=== PATIENT | female | born 1950 | race Caucasian/White ===

== ENCOUNTER 2024-11-24 14:36 | Day surgery (SDC) | payer MEDICARE ==
[2024-11-20 14:44] LABS: BASOPHILS % (AUTO) 0.9 % (0-1); EOSINOPHILS # (AUTO) 0.1 X10'3 (0-0.9); EOSINOPHILS % (AUTO) 0.9 % (0-6); HEMATOCRIT 45.1 % (35.0-45.0); HEMOGLOBIN 15.1 g/dl (12.0-16.0); LYMPHOCYTES # (AUTO) 1.4 X10'3 (1.1-4.8); LYMPHOCYTES % (AUTO) 24.6 % (21-51); MEAN CORPUSCULAR HEMOGLOBIN 32.2 PG (27.0-31.0); MEAN CORPUSCULAR HGB CONC 33.6 g/dL (33.0-36.5); MEAN CORPUSCULAR VOLUME 95.7 FL (78-98); MEAN PLATELET VOLUME 9.5 FL (7.4-10.4); MONOCYTES # (AUTO) 0.5 X10'3 (0-0.9); MONOCYTES % (AUTO) 8.3 % (2-12); NEUTROPHILS # (AUTO) 3.7 X10'3 (1.8-7.7); NEUTROPHILS % (AUTO) 65.3 % (42-75); PLATELET COUNT 198 X10'3 (140-440); RED BLOOD COUNT 4.71 X10'6 (4.20-5.60); RED CELL DISTRIBUTION WIDTH 12.9 % (11.5-14.5); WHITE BLOOD COUNT 5.6 X10'3 (4.5-11.0)
[2024-11-20 14:54] LABS: APTT 28 SECONDS (22-32); PROTHROMBIN TIME 10.3 SECONDS (9.0-12.0)
[2024-11-20 14:56] LABS: ALBUMIN 3.7 G/DL (3.4-5.0); ANION GAP 9 (8-16); BLOOD UREA NITROGEN 17 MG/DL (7-18); BUN/CREATININE RATIO 18.3 (10.0-20.0); CALCIUM 8.6 MG/DL (8.5-10.1); CHLORIDE 107 MMOL/L (99-107); CHOL/HDL RATIO 3.5 (0.00-4.99); CHOLESTEROL 198 MG/DL (0-200); CREATININE 0.93 MG/DL (0.40-0.90); GLUCOSE 119 MG/DL (70-104); HDL CHOLESTEROL 57 MG/DL (35-60); LDL CHOLESTEROL 125 MG/DL (50-100); POTASSIUM 4.5 MMOL/L (3.5-5.1); SODIUM 142 MMOL/L (135-145); TOTAL CARBON DIOXIDE 26.1 MMOL/L (24-32); TRIGLYCERIDES 118 MG/DL (20-135); eGFR 59 ML/MIN
[2024-11-24] VITALS (7 sets, daily range): BP systolic 120–163; BP diastolic 63–82; PULSE 64–72; RESP 13–17; O2SAT 96–100
[~2024-11-24] VITALS: Ht 162.6 cm; Wt 96.7 kg
--- NOTE | 2024-11-24 15:05 | ELECTROCARDIOGRAPH REPORT ---
[facility] Test Date: 2024-11-24 Test Time: 14:58:36 Pat Name: LOPEZ COY Department: [facility] Patient ID: [id number] Room: Gender: F [employer]: : 1950 Requested By: REJI WHITE Order Number: [id number] Reading MD: Dr. Ricki Jackson Measurements Intervals [place] Rate: 68 P: 75 KS: 303 QRS: -64 QRSD: 158 T: 106 QT: 482 QTc: 513 Interpretive Statements Sinus rhythm Prolonged KS interval LBBB Electronically Signed On 11-27-2024 8:13:[address] Ricki Jackson Please click the below link to view image of tracing.
[2024-11-24] MEDS ORDERED: INSU200I4 SQ (15:38)
[2024-11-24] MEDS ORDERED: EMPA25TA PO (15:38)
[2024-11-24] MEDS ORDERED: THYR90TA PO (15:38)
[2024-11-24] MEDS ORDERED: ISOS60TA71 PO (15:38)
[2024-11-24] MEDS ORDERED: SACU1TAB PO (15:38)
[2024-11-24] MEDS ORDERED: FURO20TA4 PO (15:38)
[2024-11-24] MEDS ORDERED: METO25TA6 PO (15:38)
[2024-11-24] MEDS ORDERED: SPIR25TA5 PO (15:38)
[2024-11-24] MEDS ORDERED: PANT40TA54 PO (15:38)
[2024-11-24] MEDS ORDERED: MUPI22OI30 TOP (15:38)
[2024-11-24] MEDS ORDERED: midazolam 1 mg/ML 2ml injection ONE (15:45)
[2024-11-24] MEDS ORDERED: fentaNYL/PF 50MCG/1 ML 2ML syringe ONE (15:45)
[2024-11-24] MEDS ORDERED: iohexol 350MG/ML 100ml bottle IV ONE (15:45)
[2024-11-24] MEDS ORDERED: verapamil 2.5 mg/ml inj IV ONE (15:45)
[2024-11-24] MEDS ORDERED: LIDOcaine 1% (10mg/ml) 2ml vial ONE (15:45)
[2024-11-24] MEDS ORDERED: NYST30CR28 TOP (15:46)
[2024-11-24] MEDS ORDERED: INSU100C4 SQ (15:46)
[2024-11-24] MEDS ORDERED: ASPI-1265 PO (15:46)
[2024-11-24] MEDS ORDERED: heparin 1,000unit/ml 10ml vial 10 ML ONE (15:46)
[2024-11-24] MEDS ORDERED: nitroGLYCERIN 500mcg/5mL D5W 5 ML IV ONE (15:46)
[2024-11-24] MEDS ORDERED: BIOT5CAP3 PO (15:46)
[2024-11-24] MEDS ORDERED: SYSTANE EYE (15:46)
[2024-11-24] MEDS ORDERED: HYALURONIC ACID PO (15:46)
[2024-11-24] MEDS ORDERED: THY15T PO (15:51)
[2024-11-24] MEDS ORDERED: ISOS30TA84 PO (15:51)
[2024-11-24] MEDS ORDERED: THY60T PO (15:51)
[2024-11-24] MEDS: normal saline 1000ml 1,000 ML IV SCH (16:28)
[2024-11-24] MEDS: diphenhydrAMINE 25mg capsule PO PRN (16:28)
[2024-11-24] MEDS: LORazepam 0.5 MG tablet PO PRN (16:29)
[2024-11-24] MEDS ORDERED: LIDOcaine 1% 30ml preserv. free vial ONE (17:10)
--- NOTE | 2024-11-24 17:31 | CARDIAC CATH REPORT ---
Cardiac Cath Report Providers to CC CC: DIEGO WHITE MD Procedure Comments: 1. Left Heart Catheterization 2. Selective Coronary Angiography 3. Right Radial Artery Access Brief History/Indications: 74yo woman with HTN, HLD, DM, CAD(s/p PCI LAD) with recurrent chest pains, anteroseptal ischemia referred for evaluation. Techniques: After informed consent was obtained, the patient was brought to the cardiac catheterization laboratory and prepped and draped in usual sterile fashion for left heart catheterization and other procedures mentioned above. The right wrist was anesthetized with 1% Lidocaine and the right radial artery accessed via the Seldinger technique after which a 6Fr sheath was placed. Through this a TIG was used to engage the left ventricle, the right coronary artery, and a JL 3.5 to engage the left coronary artery. At the conclusion of the case the sheath was removed and hemostasis obtained with a VascBand. Findings Findings: HEMODYNAMICS: LV: 103/- mmHg LVEDP: 5 mmHg Ao: 105/58, MAP 74 mmHg CORONARY ARTERIES: Rt Dominant LMCA: Luminal Irregularities LAD: Patent prox LAD stent. 40% stenosis of mid-LAD after the 2nd diagonal branch, acute >60% angle. D1: Luminal Irregularities D2: Luminal Irregularities LCx: Luminal Irregularities OM1: Luminal Irregularities RCA: Luminal Irregularities PDA: Luminal Irregularities PL: Luminal Irregularities Results Results: 1. No significant obstructive CAD. Patent prox LAD stent 2. RRA Access, closed with VascBand RECOMMENDATIONS: 1. Recommend uptitration of max-tolerated GDMT REJI WHITE MD Nov 24, 2024 17:31
[2024-11-24] MEDS ORDERED: HYDROcodone/acetaminophen 5mg/325mg tablet PO PRN (18:00)
[2024-11-24] MEDS ORDERED: HYDROcodone/acetaminophen 10/325mg tab PO PRN (18:00)
== END 2024-11-24 20:10 | disposition home or self-care (01) ==
LOC: SSTAY O 14:36
PROVIDERS: ATTEND Student in an Organized Health Care Education/Training Program
DX: R94.39 Abnormal result of other cardiovascular function study (principal); I25.118 Atherosclerotic heart disease of native coronary artery with other forms of angina pectoris; E78.5 Hyperlipidemia, unspecified; I11.0 Hypertensive heart disease with heart failure; I50.9 Heart failure, unspecified; Z79.01 Long term (current) use of anticoagulants; K21.9 Gastro-esophageal reflux disease without esophagitis; E11.9 Type 2 diabetes mellitus without complications; Z79.899 Other long term (current) drug therapy; Z88.8 Allergy status to other drugs, medicaments and biological substances; Z98.890 Other specified postprocedural states; Z91.011 Allergy to milk products
CPT/HCPCS: 36415; 80048; 80061; 82948; 83695; 85025; 85610; 85730; 93005; 93458; 99152; A6258; A6402; C1894; J1644; J2003; J2250; J3010; J3490; J7030; Q0163; Q9967; A6449